=== PATIENT | male | born 1980 | race Caucasian/White ===

== ENCOUNTER 2019-06-16 11:27 | Emergency (ER) | payer OTHER ==
--- NOTE | 2019-06-16 12:32 | EDM.PDOC ---
ED HPI GENERAL MEDICAL PROBLEM - General Chief Complaint: General Stated Complaint: FLU SYMPTOMS Time Seen by Provider: 06/16/19 12:17 Source of Information: Reports: Patient History Limitations: Reports: No Limitations - History of Present Illness INITIAL COMMENTS - FREE TEXT/NARRATIVE: HISTORY AND PHYSICAL: History of present illness: Patient is a 38-year-old male who presents to the ED today with concern of fever , body aches, sore throat, cough, and nasal congestion x4 days. Patient states he last took Mucinex and Advil this morning at about 5 or 6 AM. Patient states he has not taken any medication since then. Patient states the body aches tend to be the worst part. 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 Patient denies any other health history. Patient denies chest pain, shortness of breath. Denies headache, neck stiff ness , change in vision, syncope, or near syncope. Denies nausea, vomiting, abdominal pain, diarrhea, constipation, or dysuria. Has not noted any blood in urine or stool. Patient has been eating and drinking appropriately. Review of systems: As per history of present illness and below otherwise all systems reviewed and negative. Past medical history: As per history of present illness and as reviewed below otherwise noncontributory. Surgical history: As per history of present illness and as reviewed below otherwise noncontributory. Social history: See social history for further information Family history: As per history of present illness and as reviewed below otherwise noncontributory. Physical exam: General: Patient is alert, oriented, and in no acute distress. Patient laying comfortably on exam table but tired appearing. HEENT: Atraumatic, normocephalic, pupils equal and reactive bilaterally, negative for conjunctival pallor or scleral icterus, mucous membranes moist, TMs normal bilaterally, throat clear, neck supple, nontender, trachea midline. No drooling or trismus noted. No meningeal signs. No hot potato voice noted. Lungs: Clear to auscultation, breath sounds equal bilaterally, chest nontender. Dry cough on exam. Heart: S1S2, regular rate and rhythm without overt murmur Abdomen: Soft, nondistended, nontender. Negative for masses or hepatosplenomegaly. Negative for costovertebral tenderness. Pelvis: Stable nontender. Genitourinary: Deferred. Rectal: Deferred. Skin: Intact, warm, dry. No lesions or rashes noted. Extremities: Atraumatic, negative for cords or calf pain. Neurovascular unremarkable. Neuro: Awake, alert, oriented. Cranial nerves II through XII unremarkable. Cerebellum unremarkable. Motor and sensory unremarkable throughout. Exam nonfocal. Notes: Patient is out of the treatment window for Tamiflu. Tachycardic upon arrival and febrile. With improvement/treatment of fever and fluids, HR now 99-100. Admission for observation was offered to patient but he declines at this time. All risks vs benefits discussed with patient and expresses understanding. Discussed importance for follow-up with a primary care provider. Voices understanding and is agreeable to plan of care. Denies any further questions or concerns at this time. Diagnostics: Influenza, strep, CBC, CMP, CXR Therapeutics: Tylenol, NS, Toradol Prescription: None Impression: Influenza A Plan: 1. Take standard infectious contact precautions as discussed. 2. Supportive care measures such as Tylenol and/or ibuprofen as directed for pain and fever management. Encourage small frequent sips of fluids to prevent dehydration. 3. Follow-up with a primary care provider as discussed. Return to the ED as needed and as discussed. Definitive disposition and diagnosis as appropriate pending reevaluation and review of above. Generalized Pain Score (Numeric/FACES): 10 - Related Data Allergies Allergy/AdvReac Type Severity Reaction Status Date / Time No Known Allergies Allergy Verified 06/16/19 11:56 Home Meds: Home Meds . [No Known Home Meds] 06/16/19 [History] Past Medical History Gastrointestinal History: Reports: Other (See Below) Neurological History: Reports: CVA - Infectious Disease History Infectious Disease History: Reports: Chicken Pox - Past Surgical History GI Surgical History: Reports: Appendectomy, Hernia, Inguinal Social & Family History - Family History Family Medical History: Noncontributory - Caffeine Use Caffeine Use: Reports: Coffee, Energy Drinks, Tea - Recreational Drug Use Recreational Drug Use: No ED ROS GENERAL - Review of Systems Review Of Systems: Comprehensive ROS is negative, except as noted in HPI. ED EXAM, GENERAL - Physical Exam Exam: See Below (see dictation) Course - Vital Signs Last Recorded V/S: Last Vital Signs Temp 100.2 F 06/16/19 14:59 Pulse 105 H 06/16/19 14:59 Resp 16 06/16/19 14:59 BP 113/62 06/16/19 14:59 Pulse Ox 94 L 06/16/19 14:59 - Orders/Labs/Meds Orders: Active Orders 24 hr Category Date Time Status EKG Documentation Completion [RC] STAT Care 06/16/19 14:21 Active CULTURE STREP A CONFIRMATION [] Stat Lab 06/16/19 12:02 Results STREP SCRN A RAPID W CULT CONF [] Stat Lab 06/16/19 12:02 Results Sodium Chloride 0.9% [Normal Saline] 1,000 ml Med 06/16/19 15:23 Active IV STAT Medication Orders Sodium Chloride (Normal Saline) 1,000 mls @ 999 mls/hr IV STAT ONE Stop: 06/16/19 16:23 Last Admin: 06/16/19 15:43 Dose: 999 mls/hr Labs: Laboratory Tests 06/16/19 06/16/19 Range/Units 15:19 15:19 WBC 8.05 (4.0-11.0) K/uL RBC 4.77 (4.50-5.90) M/uL Hgb 14.4 (13.0-17.0) g/dL Hct 41.4 (38.0-50.0) % MCV 86.8 (80.0-98.0) fL MCH 30.2 (27.0-32.0) pg MCHC 34.8 (31.0-37.0) g/dL RDW Std Deviation 41.7 (28.0-62.0) fl RDW Coeff of Ban 13 (11.0-15.0) % Plt Count 113 L (150-400) K/uL MPV 10.50 (7.40-12.00) fL Neut % (Auto) 71.3 (48.0-80.0) % Lymph % (Auto) 15.0 L (16.0-40.0) % Davidson % (Auto) 13.5 (0.0-15.0) % Eos % (Auto) 0.1 (0.0-7.0) % Baso % (Auto) 0.1 (0.0-1.5) % Neut # (Auto) 5.7 (1.4-5.7) K/uL Lymph # (Auto) 1.2 (0.6-2.4) K/uL Davidson # (Auto) 1.1 H (0.0-0.8) K/uL Eos # (Auto) 0.0 (0.0-0.7) K/uL Baso # (Auto) 0.0 (0.0-0.1) K/uL Nucleated RBC % 0.0 /100WBC Nucleated RBCs # 0 K/uL Sodium 142 (136-148) mmol/L Potassium 4.1 (3.5-5.1) mmol/L Chloride 104 (98-107) mmol/L Carbon Dioxide 27.0 (21.0-32.0) mmol/L BUN 9 (7.0-18.0) mg/dL Creatinine 0.9 (0.8-1.3) mg/dL Est Cr Clr Drug Dosing 117.16 mL/min Estimated GFR (MDRD) > 60.0 ml/min Glucose 106 (74-106) mg/dL Calcium 8.0 L (8.5-10.1) mg/dL Total Bilirubin 0.3 (0.2-1.0) mg/dL AST 24 (15-37) IU/L ALT 35 (14-63) IU/L Alkaline Phosphatase 63 (46-116) U/L Total Protein 7.5 (6.4-8.2) g/dL Albumin 4.0 (3.4-5.0) g/dL Globulin 3.5 (2.6-4.0) g/dL Albumin/Globulin Ratio 1.1 (0.9-1.6) Meds: Medications Generic Name Dose Route Start Last Admin Trade Name Magnusq PRN Reason Stop Dose Admin Sodium Chloride 1,000 mls @ 999 mls/hr 06/16/19 15:23 06/16/19 15:43 Normal Saline IV 06/16/19 16:23 999 mls/hr STAT ONE Administration Discontinued Medications Generic Name Dose Route Start Last Admin Trade Name Freq PRN Reason Stop Dose Admin Acetaminophen 1,000 mg 06/16/19 12:33 06/16/19 12:38 Tylenol Extra Strength PO 06/16/19 12:34 1,000 mg ONETIME ONE Administration Sodium Chloride 1,000 mls @ 999 mls/hr 06/16/19 12:59 06/16/19 13:40 Normal Saline IV 06/16/19 13:59 999 mls/hr STAT ONE Administration Ketorolac Tromethamine 30 mg 06/16/19 14:17 06/16/19 14:50 Toradol IVPUSH 06/16/19 14:18 30 mg ONETIME ONE Administration Departure - Departure Time of Disposition: 16:00 Disposition: Home, Self-Care 01 Clinical Impression: Influenza A - Discharge Information Referrals: PCP,None [Primary Care Provider] - Forms: ED Department Discharge Additional Instructions: The following information is given to patients seen in the emergency department who are being discharged to home. This information is to outline your options for follow-up care. We provide all patients seen in our emergency department with a follow-up referral. The need for follow-up, as well as the timing and circumstances, are variable depending upon the specifics of your emergency department visit. If you don't have a primary care physician on staff, we will provide you with a referral. We always advise you to contact your personal physician following an emergency department visit to inform them of the circumstance of the visit and for follow-up with them and/or the need for any referrals to a consulting specialist. The emergency department will also refer you to a specialist when appropriate. This referral assures that you have the opportunity for follow-up care with a specialist. All of these measure are taken in an effort to provide you with optimal care, which includes your follow-up. Under all circumstances we always encourage you to contact your private physician who remains a resource for coordinating your care. When calling for follow-up care, please make the office aware that this follow-up is from your recent emergency room visit. If for any reason you are refused follow-up, please contact the [facility] at and asked to speak to the emergency department charge nurse. [facility] [address], [place] [address] [facility] [address] [place] [id number] 1. Take standard infectious contact precautions as discussed. 2. Supportive care measures such as Tylenol and/or ibuprofen as directed for pain and fever management. Encourage small frequent sips of fluids to prevent dehydration. 3. Follow-up with a primary care provider as discussed. Return to the ED as needed and as discussed. Sepsis Event Note - Evaluation Sepsis Screening Result: No Definite Risk - Focused Exam Vital Signs: Vital Signs Temp Temp Pulse Resp BP Pulse Ox 06/16/19 14:59 100.2 F 105 H 16 113/62 94 L 06/16/19 14:15 100.2 F 103 H 112/69 92 L 06/16/19 13:08 100.6 F 06/16/19 12:38 105.9 F H 06/16/19 11:56 104.6 F H 121 H 17 114/75 95 Date Exam was Performed: 06/16/19 Time Exam was Performed: 15:58 - My Orders Last 24 Hours: My Active Orders 06/16/19 12:02 CULTURE STREP A CONFIRMATION [RM] Stat STREP SCRN A RAPID W CULT CONF [RM] Stat 06/16/19 14:21 EKG Documentation Completion [RC] STAT 06/16/19 15:23 Sodium Chloride 0.9% [Normal Saline] 1,000 ml IV STAT - Assessment/Plan Last 24 Hours: My Active Orders 06/16/19 12:02 CULTURE STREP A CONFIRMATION [RM] Stat STREP SCRN A RAPID W CULT CONF [RM] Stat 06/16/19 14:21 EKG Documentation Completion [RC] STAT 06/16/19 15:23 Sodium Chloride 0.9% [Normal Saline] 1,000 ml IV STAT
[2019-06-16] MEDS ORDERED: Acetaminophen 500 MG Tab PO ONE (12:33)
[2019-06-16] MEDS ORDERED: Sodium Chloride 0.9% 1,000 ML IV ONE ×2 (12:59→15:23)
[2019-06-16] MEDS ORDERED: Ketorolac 30 MG/ML SDV IVPUSH ONE (14:17)
--- NOTE | 2019-06-16 15:15 | CR ---
Chest: 2 views of the chest were obtained. Comparison: No previous chest x-rays available. Heart size and mediastinum are normal. Lungs show no acute parenchymal change. Bony structures are unremarkable. Impression: 1. Nothing acute is seen on 2 view chest x-ray. Diagnostic code #1 Study was dictated in [place] Standard Time
[2019-06-16 15:45] LABS: BLOOD UREA NITROGEN,BUN 9 mg/dL (7.0-18.0); CHLORIDE,CL 104 mmol/L (98-107); GLUCOSE RANDOM 106 mg/dL (74-106); POTASSIUM,K 4.1 mmol/L (3.5-5.1); SODIUM,NA 142 mmol/L (136-148)
== END 2019-06-16 16:51 | disposition home or self-care (01) ==
LOC: MW.ED 11:27
DX: J10.1 Influenza due to other identified influenza virus with other respiratory manifestations (principal); Z86.73 Personal history of transient ischemic attack (TIA), and cerebral infarction without residual deficits
CPT/HCPCS: 36415; 71046; 80053; 85025; 87081; 87804; 87880; 93005; 96361; 96374; 99284; A9270; J1885; J7030; 99283